=== PATIENT | female | born 1980 | race Two or more races ===

== ENCOUNTER 2021-01-20 09:41 | Outpatient (CLI) | payer OTHER ==
[2021-01-21] MEDS ORDERED: COLACE100 MG PO (13:26)
[2021-01-21] MEDS ORDERED: PERCOCET 5-3251 EACH PO (13:26)
== END 2021-01-20 16:10 | disposition home or self-care (01) ==
LOC: LAB 09:41
PROVIDERS: ATTEND Surgery
DX: Z03.818 Encounter for observation for suspected exposure to other biological agents ruled out (principal); Z11.59 Encounter for screening for other viral diseases

== ENCOUNTER 2021-01-21 09:19 | Day surgery (SDC) | payer OTHER ==
[2021-01-21] MEDS ORDERED: PERCOCET 5-3251 EACH PO (13:26)
[2021-01-21] MEDS ORDERED: COLACE100 MG PO (13:26)
== END 2021-01-21 21:15 | disposition home or self-care (01) ==
LOC: CIR.AMB 09:19
PROVIDERS: ATTEND Surgery
DX: K64.8 Other hemorrhoids (principal); K64.1 Second degree hemorrhoids; Z20.822 Contact with and (suspected) exposure to COVID-19

== ENCOUNTER 2021-01-29 07:26 | Emergency (ER) | payer OTHER ==
[~2021-01-29] VITALS: Ht 167.6 cm; Wt 68.0 kg
[~2021-01-29 07:26] MED LIST: COLACE100 MG PO; PERCOCET 5-3251 EACH PO
[2021-01-29] MEDS ORDERED: OXYC1TAB9 PO (07:58)
[2021-01-29] MEDS ORDERED: DOCUSATE SODIU100 MG PO (07:58)
[2021-01-29] MEDS ORDERED: CLONAZEPAM0.5 MG PO (07:58)
== END 2021-01-29 15:15 | disposition home or self-care (01) ==
LOC: ER 07:26
DX: K64.9 Unspecified hemorrhoids (principal); K59.09 Other constipation